=== PATIENT | male | born 1970 | race Caucasian/White ===

== ENCOUNTER → 2020-08-13 | Outpatient (CLI) | payer OTHER ==
[~2020-08-13] MED LIST: ATIVAN0.5 MG PO; NOHOMEMEDICATIONS
--- NOTE | 2020-08-24 07:59 | PF ---
[address] [address] PULMONARY FUNCTION REPORT Name: MINERVA MAY [id number] Ad[facility]: 08/13/20 Attend Phys: SHAHLA SCHAFER Discharge: Date of : 74 Report #: [id number] THIS REPORT FOR: //name// CC: SHAHLA SPENCER DATE OF SERVICE: 08/13/2020 STUDY: The FEV1/FVC ratio is normal at 72% with a forced vital capacity normal at 91% and FEV1 normal at 84%. The IJQ35-83 is also normal at 72%. After the administration of a bronchodilator, there is no significant increase in any of these values. The patient's post-bronchodilator FEV1 is noted to be 3.60 liters. The total lung capacity is normal at 100% and residual volume is normal, but close to the upper limit of normal range at 114%. The DLCO as adjusted for hemoglobin is normal at 96%. IMPRESSION: These are normal pulmonary function tests. The residual volume is noted to be within the normal range; however, close to the upper limit of normal range. This could be a normal variant or could indicate mild underlying obstructive lung disease. Clinical correlation is advised. <ELECTRONICALLY SIGNED> By: David Miranda MD 08/24/20 0759 0726 [id number] ayala Cheng
== END ==
LOC: M.PUL 09:00
PROVIDERS: ATTEND Nurse Practitioner Family
DX: R05 Cough (principal)

== ENCOUNTER → 2021-08-17 | Outpatient (CLI) | payer OTHER | LOC: M.CT 07-22 08:00 | PROVIDERS: ATTEND Nurse Practitioner Family | DX: Z13.6 Encounter for screening for cardiovascular disorders (principal) ==

== ENCOUNTER 2021-09-14 08:55 | Inpatient (IN) | payer OTHER ==
[~2021-09-14] VITALS: Ht 180.3 cm; Wt 105.2 kg
[2021-09-14 09:05] VITALS: BP 121/66
[2021-09-14 09:32] LABS: ABSOLUTE LYMPHOCYTES 1.3 thou/uL (0.8-5.3); ABSOLUTE MONOCYTES 0.2 thou/uL (0.0-1.2); ABSOLUTE NEUTROPHILS 8.2 thou/uL (1.6-8.1); BASOPHILS 0.3 %; HEMATOCRIT 42.1 % (42.0-52.0); HEMOGLOBIN 14.3 gm/dL (14.0-18.0); LYMPHOCYTES 13.2 %; MCH 29.1 pg (26.0-34.0); MCHC 33.9 g/dL (28.0-37.0); MCV 85.9 fL (80.0-100.0); MONOCYTES 2.3 %; MPV 7.9 fl. (7.2-11.1); NUCLEATED RBCS 0 /100WBC; PLATELET COUNT* 193 thou/uL (150-400); POLYS 84.2 %; RDW-CV 14.9 % (10.5-14.5); WBC 9.8 thou/uL (4.0-11.0)
[2021-09-14 09:49] LABS: CALCIUM 8.3 mg/dL (8.5-10.1); CREATININE 1.4 mg/dL (0.6-1.3); POTASSIUM 4.1 mmol/L (3.5-5.1)
[2021-09-14 10:00] LABS: ALBUMIN 2.9 g/dL (3.4-5.0); TOTAL BILIRUBIN 0.7 mg/dL (<0.1-1.0); TOTAL PROTEIN 7.6 g/dL (6.4-8.2)
[2021-09-14 13:58] VITALS: BP 115/65
--- NOTE | 2021-09-14 15:43 | NUR ---
Infection Control: Per [facility] patient has a positive Covid PCR test on 09/08/21 and 09/10/21.
[2021-09-14 15:55] VITALS: BP 110/62
[2021-09-14 17:57] VITALS: BP 100/59
[2021-09-14 20:50] VITALS: BP 124/81
[2021-09-15] VITALS (9 sets, daily range): BP systolic 115–156; BP diastolic 69–92
[2021-09-15 01:51] LABS: PO2 68.4 mmHg (75.0-100.0); pH 7.439 (7.340-7.450)
--- NOTE | 2021-09-15 08:55 | EKG ---
[place] [address] ELECTROCARDIOGRAM REPORT Name: MINERVA MAY Room: [place] [address] ADM IN ..#: [id number] Admission: 09/14/21 Attend Phys: Eleonora Laws Discharge: Date of : 74 Date of Service: 09/14/21 0934 Report #: [id number] THIS REPORT FOR: //name// [facility] ED Test Date: 2021-09-14 Test Time: 09:34:10 Pat Name: MINERVA MAY Department: Room: [facility] Gender: M Online Marketing Specialist: NELLI : 1970 Requested By: Robson Craven Order Number: [id number] MD: Johnny Zapata Measurements Intervals [place] Rate: 100 P: 66 CT: 153 QRS: 60 QRSD: 71 T: 29 QT: 373 QTc: 482 Interpretive Statements Sinus tachycardia Borderline prolonged QT interval Baseline wander in lead(s) V1 Compared to ECG 11/24/2009 18:52:23 Sinus rhythm no longer present Electronically Signed On 09-15-2021 8:55:29 SUPERVISOR AIR CONDITIONING INSTALLER by Johnny Zapata [email or web address] <ELECTRONICALLY SIGNED> By: Johnny Zapata MD, [facility] 09/15/21 0855 Johnny Zapata MD, [facility] /EPI
[2021-09-15 09:22] LABS: BE 0.3 mmol/L (-2 to +3); PCO2 38.5 mmHg (35.0-45.0); PO2 71.6 mmHg (75.0-100.0); pH 7.422 (7.340-7.450)
--- NOTE | 2021-09-15 10:08 | NUR ---
Pt is admitted on 09/14/21 with Covirish. Called - Erinn at: [phone] to complete assessment. Pt lives with in a raised [place] house. reports 15 steps to enter. reports patient was independent in ambulation and ADL's. No hx of DME, HH, or SNF. 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 reports patient last saw his PCP last May or June of 2021. CM to follow for HH or DME needs.
[2021-09-15 11:04] LABS: HEMATOCRIT 40.1 % (42.0-52.0); HEMOGLOBIN 13.3 gm/dL (14.0-18.0); MCH 28.6 pg (26.0-34.0); MCHC 33.2 g/dL (28.0-37.0); MPV 7.5 fl. (7.2-11.1); NUCLEATED RBCS 0 /100WBC; PLATELET COUNT* 234 thou/uL (150-400); RBC 4.67 mil/uL (4.50-6.00); RDW-CV 15.2 % (10.5-14.5); WBC 12.3 thou/uL (4.0-11.0)
[2021-09-15 11:24] LABS: ALBUMIN 2.5 g/dL (3.4-5.0); CALCIUM 8.2 mg/dL (8.5-10.1); CREATININE 1.3 mg/dL (0.6-1.3); MAGNESIUM 2.2 mg/dL (1.8-2.4); POTASSIUM 3.5 mmol/L (3.5-5.1); TOTAL BILIRUBIN 0.4 mg/dL (<0.1-1.0); TOTAL PROTEIN 7.2 g/dL (6.4-8.2)
[2021-09-15 11:32] LABS: PROTIME 10.5 Seconds (9.20-11.50)
[2021-09-15 11:49] LABS: ABSOLUTE LYMPHOCYTES 1.6 thou/uL (0.8-5.3); ABSOLUTE MONOCYTES 0.2 thou/uL (0.0-1.2); ABSOLUTE NEUTROPHILS 10.5 thou/uL (1.6-8.1); MYELOCYTES 1 %; PLATELET ESTIMATE ADEQUATE
[2021-09-16 02:41] VITALS: BP 119/68; BP 130/77
[2021-09-16 04:00] VITALS: BP 119/68
[2021-09-16 08:32] LABS: CALCIUM 8.3 mg/dL (8.5-10.1); CREATININE 1.2 mg/dL (0.6-1.3); POTASSIUM 3.6 mmol/L (3.5-5.1)
[2021-09-16 09:00] VITALS: BP 109/71
[2021-09-16 12:00] VITALS: BP 107/55
--- NOTE | 2021-09-16 13:31 | NUR ---
Nutrition: Pt admitted with COVID. Meds: Remdesivir, ABX, steroids, plasma, vitamin C. Regular diet ordered. Labs: BG 152, albumin 2.5, prealb 10.2. Wt: 323#. Consult was received for poor appetite. Attempted to call RN who was busy. No meal intake % is recorded in [employer]. RD will order Ensure pudding for added kcals and protein. Please record wts and meal intake. At this time, consider mild nutrition risk. Will follow up per protocol.
--- NOTE | 2021-09-16 14:16 | NUR ---
CM FOLLOWUP PT NOT MEDICALLY CLEAR YET. PT DX WITH COVID AND ON 15L. WHEN MEDICALLY CLEAR, PLAN FOR PT TO DC HOME. CM TO FOLLOW FOR DC NEEDS.
[2021-09-16 16:00] VITALS: BP 121/69
[2021-09-16 20:00] VITALS: BP 123/71
--- NOTE | 2021-09-16 20:55 | NUR ---
Pt alert and oriented; pleasant and cooperative though fatigued. SOA with activity, and desats into mid-80s with activity. Also becomes tachypneic and SOA. Pt placed on BIPAP following getting up to BSC and back to bed, and again after getting up to recliner this evening. VSS. On 15L O2 per [facility] when off BIPAP. Will continue to monitor.
[2021-09-17] VITALS: BP 129/68
[2021-09-17 04:00] VITALS: BP 109/54
[2021-09-17 04:00] LABS: HEMATOCRIT 39.6 % (42.0-52.0); HEMOGLOBIN 13.2 gm/dL (14.0-18.0); MCH 28.9 pg (26.0-34.0); MCHC 33.3 g/dL (28.0-37.0); MCV 86.9 fL (80.0-100.0); MPV 7.8 fl. (7.2-11.1); RBC 4.56 mil/uL (4.50-6.00); RDW-CV 15.4 % (10.5-14.5); WBC 9.9 thou/uL (4.0-11.0)
[2021-09-17 04:16] LABS: CALCIUM 8.3 mg/dL (8.5-10.1); CREATININE 1.1 mg/dL (0.6-1.3); POTASSIUM 3.5 mmol/L (3.5-5.1)
--- NOTE | 2021-09-17 07:10 | NUR ---
CHANGE OF SHIFT REPORT GIVEN PATIENT SEEN AT BEDSIDE, IN BED ASLEEP ASSUMED PATIENT CARE
[2021-09-17 08:00] VITALS: BP 112/65
[2021-09-17 12:42] VITALS: BP 123/68
--- NOTE | 2021-09-17 14:18 | 2DMMODE ---
[place] [address] 2 D/M-MODE ECHOCARDIOGRAM Name: MINERVA MAY Room: [address] IN .Camila.#: [id number] Admission: 09/14/21 Attend Phys: Eleonora Laws Discharge: Date of : 74 Date of Service: 09/17/21 1417 Report #: [id number] THIS REPORT FOR: cc: SHAHLA SPENCER NP, KATHERINE NP Blick, David R. MD [facility] ~ APPROVED REPORT Study performed: 09/17/2021 11:29:01 EXAM: Comprehensive 2D, Doppler, and color-flow Echocardiogram Patient Location: In-Patient Room #: [facility] Status: routine BSA: 2.25 HR: 60 bpm BP: 112/65 mmHg Rhythm: NSR Other Information Study Quality: Good Indications Dyspnea 2D Dimensions IVSd: 11.48 (7-11mm) LVOT Diam: 20.57 (18-24mm) LVDd: 50.84 mm PWd: 10.29 (7-11mm) Ascending Ao: 35.50 (22-36mm) LVDs: 24.61 (25-40mm) Aortic Root: 29.53 mm Volumes Left Atrial Volume (Systole) LA ESV Index: 24.90 mL/m2 Aortic Valve AoV Peak Kalin.: 1.55 m/s AO Peak Gr.: 9.56 mmHg LVOT Max P.28 mmHg AO Mean Gr.: 4.64 mmHg LVOT Mean P.24 mmHg LVOT Max V: 1.35 m/s AO V2 VTI: 27.68 cm LVOT Mean V: 0.82 m/s ADAM (VTI): 3.30 cm2 LVOT V1 VTI: 27.51 [place] [address] 2 D/M-MODE ECHOCARDIOGRAM Name: MINERVA MAY Room: [address] IN ..#: [id number] Admission: 09/14/21 Attend Phys: Eleonora Laws Discharge: Date of : 74 Date of Service: 09/17/21 1417 Report #: [id number] Mitral Valve E/A Ratio: 1.46 MV Decel. Time: 229.99 ms MV E Max Kalin.: 0.83 m/s MV PHT: 66.70 ms MVA (PHT): 3.30 cm2 TDI E/Lateral E': 6.38 E/Medial E': 5.93 Medial E' Kalin.: 0.14 m/s Lateral E' Kalin.: 0.13 m/s Pulmonary Valve PV Peak Kalin.: 1.23 m/s PV Peak Gr.: 6.01 mmHg Tricuspid Valve RAP Estimate: 5.00 mmHg TR Peak Gr.: 32.72 mmHg RVSP: 37.00 mmHg PA Pressure: 37.00 mmHg Left Ventricle The left ventricle is normal size. There is normal LV segmental wall motion. There is normal left ventricular wall thickness. Left ventricular systolic function is normal. The left ventricular ejection fraction is within the normal range. LVEF is 60-65%. The left ventricular diastolic function is normal. Right Ventricle The right ventricle is normal size. The right ventricular systolic function is normal. Atria The left atrium size is normal. The right atrium size is normal. Aortic Valve The aortic valve is normal in structure. No aortic regurgitation is present. There is no aortic valvular stenosis. Mitral Valve The mitral valve is normal in structure. Trace mitral regurgitation. No evidence of mitral valve stenosis. Tricuspid Valve The tricuspid valve is normal in structure. Trace tricuspid regurgitation. estimated pa pressure 35 [place] [address] 2 D/M-MODE ECHOCARDIOGRAM Name: MINERVA MAY Room: [address] IN [facility]#: [id number] Admission: 09/14/21 Attend Phys: Eleonora Laws Discharge: Date of : 74 Date of Service: 09/17/21 1417 Report #: [id number] Pulmonic Valve The pulmonary valve is normal in structure. Trace pulmonic regurgitation. Great Vessels The aortic root is normal in size. IVC is not well visualized. Pericardium There is no pericardial effusion. <Conclusion> LVEF is 60-65%. Trace tricuspid regurgitation. estimated pa pressure 35 mm Hg <ELECTRONICALLY SIGNED> By: Johnny Zapata MD, FACC 09/17/211416 16 16 Johnny Zapata MD, FACC /INF
[2021-09-17 15:36] VITALS: BP 118/56
--- NOTE | 2021-09-17 18:45 | NUR ---
CM FOLLOWUP PT NOT MED CLEAR AND IS STAYING THROUGH WEEKEND. UPON MED CLEARANCE, PT TO DC HOME. NO CM NEEDS NOTED.
[2021-09-17 20:00] VITALS: BP 125/77
[2021-09-18] VITALS: BP 137/72
[2021-09-18 04:34] VITALS: BP 116/72
[2021-09-18 04:36] LABS: HEMATOCRIT 39.3 % (42.0-52.0); MCH 28.7 pg (26.0-34.0); MCHC 33.2 g/dL (28.0-37.0); MCV 86.5 fL (80.0-100.0); MPV 7.4 fl. (7.2-11.1); RBC 4.55 mil/uL (4.50-6.00); RDW-CV 15.4 % (10.5-14.5)
[2021-09-18 04:54] LABS: CALCIUM 8.5 mg/dL (8.5-10.1); CREATININE 1.2 mg/dL (0.6-1.3); POTASSIUM 3.7 mmol/L (3.5-5.1)
[2021-09-18 08:00] VITALS: BP 102/56
[2021-09-18 12:00] VITALS: BP 119/66
[2021-09-18 15:21] VITALS: BP 112/59
[2021-09-18 20:00] VITALS: BP 123/79
[2021-09-19 00:54] VITALS: BP 128/83
[2021-09-19 04:00] VITALS: BP 121/69; BP 151/85; BP 21/69
[2021-09-19 04:41] LABS: HEMATOCRIT 38.8 % (42.0-52.0); HEMOGLOBIN 12.9 gm/dL (14.0-18.0); MCH 28.8 pg (26.0-34.0); MCHC 33.2 g/dL (28.0-37.0); MCV 86.7 fL (80.0-100.0); MPV 7.6 fl. (7.2-11.1); NUCLEATED RBCS 0 /100WBC; PLATELET COUNT* 438 thou/uL (150-400); RBC 4.48 mil/uL (4.50-6.00); RDW-CV 15.2 % (10.5-14.5); WBC 10.6 thou/uL (4.0-11.0)
[2021-09-19 05:06] LABS: ALBUMIN 2.6 g/dL (3.4-5.0); CALCIUM 8.4 mg/dL (8.5-10.1); CREATININE 1.3 mg/dL (0.6-1.3); MAGNESIUM 2.4 mg/dL (1.8-2.4); POTASSIUM 3.8 mmol/L (3.5-5.1); TOTAL BILIRUBIN 0.4 mg/dL (<0.1-1.0); TOTAL PROTEIN 6.7 g/dL (6.4-8.2)
[2021-09-19 06:58] LABS: ABSOLUTE LYMPHOCYTES 0.5 thou/uL (0.8-5.3); ABSOLUTE MONOCYTES 0.5 thou/uL (0.0-1.2); ABSOLUTE NEUTROPHILS 9.5 thou/uL (1.6-8.1); METAMYELOCYTES 1 %
[2021-09-19 06:59] LABS: PLATELET ESTIMATE ADEQUATE
[2021-09-19 07:00] LABS: HYPOCHROMASIA 1+
[2021-09-19 08:00] VITALS: BP 123/85
[2021-09-19 12:43] VITALS: BP 136/78
--- NOTE | 2021-09-19 12:56 | NUR ---
Gave report to RN taking over care. Patient stable. SLIV. RT going to transport patient.
[2021-09-19 16:00] VITALS: BP 128/54
[2021-09-19 20:30] VITALS: BP 115/56
[2021-09-20 04:32] LABS: ABSOLUTE LYMPHOCYTES 0.7 thou/uL (0.8-5.3); ABSOLUTE MONOCYTES 0.7 thou/uL (0.0-1.2); ABSOLUTE NEUTROPHILS 11.1 thou/uL (1.6-8.1); BASOPHILS 0.1 %; HEMATOCRIT 41.1 % (42.0-52.0); HEMOGLOBIN 13.6 gm/dL (14.0-18.0); LYMPHOCYTES 5.5 %; MCH 28.9 pg (26.0-34.0); MCHC 33.1 g/dL (28.0-37.0); MCV 87.1 fL (80.0-100.0); MONOCYTES 5.9 %; MPV 7.9 fl. (7.2-11.1); NUCLEATED RBCS 0 /100WBC; PLATELET COUNT* 474 thou/uL (150-400); POLYS 88.5 %; RBC 4.72 mil/uL (4.50-6.00); RDW-CV 15.1 % (10.5-14.5); WBC 12.5 thou/uL (4.0-11.0)
[2021-09-20 04:56] LABS: ALBUMIN 2.7 g/dL (3.4-5.0); CALCIUM 8.6 mg/dL (8.5-10.1); CREATININE 1.3 mg/dL (0.6-1.3); MAGNESIUM 2.5 mg/dL (1.8-2.4); POTASSIUM 3.9 mmol/L (3.5-5.1); TOTAL BILIRUBIN 0.4 mg/dL (<0.1-1.0); TOTAL PROTEIN 6.9 g/dL (6.4-8.2)
[2021-09-20 05:45] VITALS: BP 135/72
[2021-09-20 08:43] VITALS: BP 120/54
[2021-09-20 12:00] VITALS: BP 118/56
[2021-09-20 16:00] VITALS: BP 109/70
--- NOTE | 2021-09-20 16:08 | CON ---
[facility] [address] [place] [address] CONSULTATION Name: MINERVA MAY Jey Room: [address] IN M.R.#: [id number] Admission: 09/14/21 Attend Phys: Ilene Rojas Discharge: Date of : 74 Report #: [id number] THIS REPORT FOR: cc: SHAHLA SPENCER NP, KATHERINE NP Pervez, Adeel MD ~ DATE OF CONSULTATION: 09/16/2021 REQUESTING PHYSICIAN: Dr. Laws. INDICATION FOR CONSULTATION: Acute hypoxemic respiratory failure secondary to COVID-19. HISTORY OF PRESENT ILLNESS: This is a 51-year-old gentleman. He has a history of obstructive sleep apnea. His body mass index is elevated to 32.4. He does use a CPAP at home. He otherwise does not have a history of a cardiac or respiratory disease. He has a remote history of smoking, discontinued more than 20 years ago. He has not been vaccinated for COVID-19. The patient is now admitted with COVID-19. He had symptoms for about 6 days prior to admission. He was admitted here 2 days ago. He reported increasing shortness of breath. He has had a cough. There is not much sputum. He has had fever, chills, loss of taste and poor appetite. He is not vaccinated for COVID-19. There has been worsening in his respiratory status since admission. He is currently requiring 15 liters of oxygen to maintain O2 saturation, barely at 90%. The patient upon presentation was also hypoxemic, but at that point, he was maintaining O2 saturation with 6 liters of oxygen. He does have some swelling of lower extremities. He has had disturbed sleep at night as well as with sleepiness during the day with symptoms significantly improved with the use of CPAP at home. REVIEW OF SYSTEMS: A 12 points is negative except as mentioned above. PAST MEDICAL HISTORY: Obstructive sleep apnea, on a CPAP at home, obesity, body mass index 32.4. SOCIAL HISTORY: There is a remote history of smoking. He says he discontinued smoking more than 20 years ago. No known history of heavy alcohol use or illegal drug use. CURRENT MEDICATIONS: List in [employer] reviewed. HOME MEDICATIONS: List in [employer] reviewed. ALLERGIES: [place] [address] CONSULTATION Name: KAELYN MAYYCE Jey Room: [address] IN [facility]#: [id number] Admission: 09/14/21 Attend Phys: Ilene Rojas Discharge: Date of : 74 Report #: [id number] IMMUNIZATION HISTORY: Not vaccinated for COVID-19. PHYSICAL EXAMINATION: GENERAL: He is alert, awake and oriented. He is sitting in a chair. VITAL SIGNS: Has a pulse of 67 and a blood pressure of 121/69, he is saturating 90%. He is on 15 liters nasal cannula. His respiratory rate is elevated to 24. He is afebrile with a temperature of 36.3. HEENT: Head is normocephalic and atraumatic. NECK: Does not show raised JVP. CHEST: Breath sounds are bilaterally equal, decreased. No added sounds. HEART: Regular. There is no murmur. ABDOMEN: Soft and nontender. EXTREMITIES: Lower extremities, 1+ edema, no calf tenderness. LABORATORY DATA: The patient's x-ray done today which I ordered shows significant worsening in infiltrates compared with 2 days ago. His lab work in [employer] reviewed. Note that his creatinine was initially 1.4 and he did receive some fluid resuscitation initially; however, subsequently did receive a dose of Lasix as well as plasma as well. ASSESSMENT AND PLAN: 1. Acute hypoxemic respiratory failure secondary to COVID-19. He has sleep apnea and underlying continue BiPAP while asleep, settings adjusted. Avoid sleeping supine. 2. COVID-19. Increase dexamethasone dose. Continue with remdesivir. Follow LFTs. Recommend Actemra. Unfortunately, not available. Received 1 unit of convalescent plasma. 3. Pulmonary infiltrates. We will do a nasal swab for MRSA as well as sputum culture. Increase ceftriaxone dose to 2 grams daily, switched azithromycin to doxycycline. 4. Obstructive sleep apnea, see discussion above. 5. Mild fluid overload. We will try to run him on the tunnel drier operator side ordered 1 dose of Lasix. We will give him midodrine if needed. Replace potassium. 6. Edema/evaluation for thromboembolic phenomena. I increased Lovenox to intermediate dose. We will do venous Dopplers. We will do an echo. We do need to run him on the tunnel drier operator side as above. Therefore, he will be high risk for IV DYE, nephrotoxicity and therefore, for now, holding off on a CTA chest, D-dimer noted to be 1.07. 7. Hyperglycemia, insulin sliding scale. 8. Gastrointestinal prophylaxis, Protonix. 9. Clostridium difficile prophylaxis, Lactinex. [address] [address] CONSULTATION Name: MINERVA MAY Room: [address] IN .R.#: [id number] Admission: 09/14/21 Attend Phys: Ilene Rojas Discharge: Date of : 74 Report #: [id number] Thanks for this consultation. <ELECTRONICALLY SIGNED> By: David Miranda MD 09/20/21 1608 1730 2044Amontrell Miranda MD /nt
--- NOTE | 2021-09-20 18:41 | NUR ---
PT TITRATED FROM HEATED HIGH FLOW AT 60L/100% WITH 15L NRB OVER IT DOWN TO HEATED HIGH FLOW 55L/100% WITHOUT NRB. PTS UPDATED X2. CLARIFIED WITH PATRICIA, INFECTIOUS NURSE AND ONLINE CONTENT DEVELOPER THIS SHIFT REGARDING PT ISOLATION STATUS. STATED PT OUT OF ISO AFTER X10 DAYS. PT SAT IN CHAIR MAJORITY OF DAY. USED INCENTIVE SPIROMETER X10/HR EDUCATED.
[2021-09-20 20:00] VITALS: BP 121/67
[2021-09-21 00:40] VITALS: BP 118/67
--- NOTE | 2021-09-21 02:30 | NUR ---
PT ALERT ORIENTED. UP AD RAAD IN ROOM. O2 AT 55 LITERS HEATED HIGH FLOW 100% VOIDS CLEAR YELLOW. DENIES PAIN.
[2021-09-21 04:23] LABS: ABSOLUTE LYMPHOCYTES 0.8 thou/uL (0.8-5.3); ABSOLUTE MONOCYTES 0.7 thou/uL (0.0-1.2); ABSOLUTE NEUTROPHILS 12.9 thou/uL (1.6-8.1); BASOPHILS 0.3 %; HEMATOCRIT 41.1 % (42.0-52.0); HEMOGLOBIN 13.6 gm/dL (14.0-18.0); LYMPHOCYTES 5.3 %; MCH 28.8 pg (26.0-34.0); MCV 87.3 fL (80.0-100.0); MONOCYTES 5.1 %; MPV 7.9 fl. (7.2-11.1); NUCLEATED RBCS 0 /100WBC; PLATELET COUNT* 471 thou/uL (150-400); POLYS 89.3 %; RBC 4.71 mil/uL (4.50-6.00); WBC 14.4 thou/uL (4.0-11.0)
[2021-09-21 04:36] VITALS: BP 115/57
[2021-09-21 04:40] LABS: ALBUMIN 2.6 g/dL (3.4-5.0); CALCIUM 8.5 mg/dL (8.5-10.1); CREATININE 1.3 mg/dL (0.6-1.3); MAGNESIUM 2.4 mg/dL (1.8-2.4); POTASSIUM 4.2 mmol/L (3.5-5.1); TOTAL BILIRUBIN 0.4 mg/dL (<0.1-1.0); TOTAL PROTEIN 6.7 g/dL (6.4-8.2)
[2021-09-21 08:00] VITALS: BP 98/48
--- NOTE | 2021-09-21 10:35 | NUR ---
PLAN OF CARE: PT REMAINS TELE STATUS. PT CONTINUES TO HAVE INCREASED O2 NEEDS AND REMAINS ON 55L HF O2 AT THIS TIME. CM D/C PLANNING NEEDS TBD, BUT MAY INCLUDE HOME O2 PENDING R.T. REST AND EXERCISE PRIOR TO D/C. CM WILL REMAIN AVAILABELE TO ASSIST AND FOLLOW NEEDED.
[2021-09-21 12:00] VITALS: BP 108/55
[2021-09-21 16:00] VITALS: BP 112/63
[2021-09-21 20:00] VITALS: BP 116/70
[2021-09-22] VITALS: BP 107/52
[2021-09-22 04:00] VITALS: BP 115/62
--- NOTE | 2021-09-22 04:10 | NUR ---
PT ALERT ORIENTED. UP AD RAAD IN ROOM. O2 AT 7 LITERS HIGH FLOW NC. DIRECTOR OF MANUFACTURING OPERATIONS TRACING SB/SR. VOIDING SM AMTS CLEAR YELLOW. DENIES PAIN.
[2021-09-22 04:49] LABS: HEMATOCRIT 42.3 % (42.0-52.0); HEMOGLOBIN 13.9 gm/dL (14.0-18.0); MCH 28.7 pg (26.0-34.0); MCHC 32.9 g/dL (28.0-37.0); MCV 87.3 fL (80.0-100.0); MPV 7.9 fl. (7.2-11.1); NUCLEATED RBCS 0 /100WBC; PLATELET COUNT* 441 thou/uL (150-400); RBC 4.85 mil/uL (4.50-6.00); RDW-CV 15.5 % (10.5-14.5); WBC 14.7 thou/uL (4.0-11.0)
[2021-09-22 05:12] LABS: ALBUMIN 2.7 g/dL (3.4-5.0); CALCIUM 8.6 mg/dL (8.5-10.1); CREATININE 1.3 mg/dL (0.6-1.3); MAGNESIUM 2.3 mg/dL (1.8-2.4); POTASSIUM 4.4 mmol/L (3.5-5.1); TOTAL BILIRUBIN 0.4 mg/dL (<0.1-1.0); TOTAL PROTEIN 6.9 g/dL (6.4-8.2)
[2021-09-22 06:47] LABS: ABSOLUTE LYMPHOCYTES 1.6 thou/uL (0.8-5.3); ABSOLUTE MONOCYTES 0.1 thou/uL (0.0-1.2); ABSOLUTE NEUTROPHILS 12.9 thou/uL (1.6-8.1)
[2021-09-22 06:48] LABS: PLATELET ESTIMATE ADEQUATE
[2021-09-22 08:30] VITALS: BP 90/48
--- NOTE | 2021-09-22 09:59 | NUR ---
PLAN OF CARE: PT'S O2 NEEDS DECREASED TO 6L O2 CURRENTLY. PT MAY STILL NEED HOME O2 AT D/C PENDING R.T. REST AND EX OX PRIOR TO D/C WHEN PT MEDICALLY STABLE. NO OTHER CM D/C PLANNING NEEDS IDENTIFIED. CM WILL REMAIN AVAILABLE TO ASSIST AND FOLLOW NEEDED.
[2021-09-22 11:46] VITALS: BP 121/71
[2021-09-22 16:00] VITALS: BP 116/75
[2021-09-22 20:00] VITALS: BP 137/63
[2021-09-22 20:11] LABS: CALCIUM 8.7 mg/dL (8.5-10.1); CREATININE 1.2 mg/dL (0.6-1.3); MAGNESIUM 2.4 mg/dL (1.8-2.4); POTASSIUM 5.2 mmol/L (3.5-5.1)
[2021-09-23] VITALS: BP 113/62
--- NOTE | 2021-09-23 03:52 | NUR ---
PT WITHDRAWN ORIENTED. UP AD RAAD IN ROOM. O2 AT 5 LITERS NC. VOIDS PER URINAL. REMELT OPERATOR TRACING SR.
[2021-09-23 04:00] VITALS: BP 114/69
[2021-09-23 04:10] LABS: HEMATOCRIT 42.1 % (42.0-52.0); HEMOGLOBIN 13.8 gm/dL (14.0-18.0); MCH 28.6 pg (26.0-34.0); MCHC 32.7 g/dL (28.0-37.0); MCV 87.5 fL (80.0-100.0); MPV 7.6 fl. (7.2-11.1); RBC 4.82 mil/uL (4.50-6.00); RDW-CV 15.3 % (10.5-14.5)
[2021-09-23 04:32] LABS: ALBUMIN 2.6 g/dL (3.4-5.0); CALCIUM 8.3 mg/dL (8.5-10.1); CREATININE 1.2 mg/dL (0.6-1.3); MAGNESIUM 2.2 mg/dL (1.8-2.4); TOTAL BILIRUBIN 0.4 mg/dL (<0.1-1.0); TOTAL PROTEIN 6.6 g/dL (6.4-8.2)
[2021-09-23 04:34] LABS: POTASSIUM 3.8 mmol/L (3.5-5.1)
[2021-09-23 08:08] VITALS: BP 128/76
[2021-09-23 11:47] VITALS: BP 100/61
[2021-09-23] MEDS ORDERED: GLUCOTROL5 MG PO (13:05)
[2021-09-23] MEDS ORDERED: PROAIR HFA8.5 GM INH (13:11)
[2021-09-23] MEDS ORDERED: PREDNISONE 10 M10 MG PO (13:11)
[2021-09-23 13:20] VITALS: BP 100/61
--- NOTE | 2021-09-23 13:26 | NUR ---
ASSUMED PT CARE AT 0730. ASSESSMENT COMPLETED, VSS. MEDICATIONS ADMINISTERED ORDERED.NEW ORDERS TO DISCHARGE TO HOME. PT'S SPOUSE HERE, DISCHARGE INSTRUCTIONS REVIEWED WITH PT AND PT VERBALIZING UNDERSTANDING. ALL BELONGINGS WITH PT. PT TRANSPORTED VIA TO MAIN ENTRANCE TO LEAVE WITH AT APPROX 1330.
--- NOTE | 2021-09-23 16:09 | NUR ---
PLAN FOR THE PT TO D/C HOME TODAY WITH SELF-CARE AND HOME O2. HOME OXYGEN ARRANGED WITH [employer]. R.T. INFORMS THAT PT NEEDS 4L 02 WITH ACTIVITY. NO OTHER CM D/C PLANNING NEEDS ANTICIPATED. CM WILL REMAIN AVAILABLE TO ASSIST AND FOLLOW NEEDED. [employer] PHONE: [phone]
== END 2021-09-23 13:45 | disposition home health service (06) | DRG 871 ==
LOC: M.ERS 08:55 → M.TBA-ER 09:49 → M.2W 09:49 → M.ORTHSURG 09-15 18:54 → M.2W 09-19 13:50
PROVIDERS: Emergency Medicine; Emergency Medicine Emergency Medical Services; Internal Medicine; Internal Medicine Critical Care Medicine; ADMIT Internal Medicine; ATTEND Internal Medicine
DX: A41.89 Other specified sepsis (principal); J96.01 Acute respiratory failure with hypoxia; U07.1 COVID-19; J12.82 Pneumonia due to coronavirus disease 2019; F41.9 Anxiety disorder, unspecified; G47.33 Obstructive sleep apnea (adult) (pediatric); E66.9 Obesity, unspecified; E87.70 Fluid overload, unspecified; Z68.32 Body mass index [BMI] 32.0-32.9, adult; Z86.16 Personal history of COVID-19; Z87.891 Personal history of nicotine dependence; E11.65 Type 2 diabetes mellitus with hyperglycemia